=== PATIENT | male | born 1950 | race Caucasian/White ===

== ENCOUNTER 2017-01-27 17:54 | Inpatient (IN) | payer BC, MEDICARE ==
[2017-01-27] MEDS ORDERED: Sodium Chloride 0.9% 1,000 ML IV ONE ×2 (18:24→19:50)
[2017-01-27] MEDS ORDERED: Ondansetron 4 MG/2 ML SDV IV ONE (18:24)
--- NOTE | 2017-01-27 18:29 | EDM.PDOC ---
<Julio Cesar Finney - Last Filed: 01/27/17 19:02> ED HPI GENERAL MEDICAL PROBLEM - General Chief Complaint: Respiratory Problem Stated Complaint: RIGGOR,O2 LOW, THROWING UP [id number] Time Seen by Provider: 01/27/17 18:20 Source of Information: Reports: Patient History Limitations: Reports: No Limitations - History of Present Illness INITIAL COMMENTS - FREE TEXT/NARRATIVE: This 66 yo male patient reports to the ED with a 1 day history of a productive cough and a fever. The patient reports no specific area of pain. The patient reports he has been eating and drinking normally over the past couple of days. The patient reports his cough has been getting worse throughout today and the body aches have also been getting worse. Onset Date: 01/26/17 Duration: Constant, Getting Worse Location: Reports: Chest, Generalized Quality: Reports: Ache, Dull Severity: Moderate Improves with: Reports: None Worsens with: Reports: None Associated Symptoms: Reports: cough w sputum, Fever/Chills, Nausea/Vomiting - Related Data Allergies Allergy/AdvReac Type Severity Reaction Status Date / Time No Known Allergies Allergy Verified 01/27/17 19:16 Home Meds: Home Meds Lutein/Minerals/Vit A,C & E [Ocuvite] 1 tab PO DAILY 01/27/17 [History] ED ROS GENERAL - Review of Systems Review Of Systems: ROS reveals no pertinent complaints other than HPI. ED EXAM, GENERAL - Physical Exam Exam: See Below Exam Limited By: No Limitations General Appearance: Alert, WD/WN, Moderate Distress, Obese Eye Exam: Bilateral Eye: EOMI, Normal Inspection, PERRL Ears: Normal External Exam, Normal Canal, Hearing Grossly Normal, Normal TMs Nose: Normal Inspection, Normal Mucosa, No Blood Throat/Mouth: Normal Inspection, Normal Lips, Normal Teeth, Normal Gums, Normal Oropharynx, Normal Voice, No Airway Compromise Head: Atraumatic, Normocephalic Neck: Normal Inspection, Supple, Non-Tender, Full Range of Motion Respiratory/Chest: No Accessory Muscle Use, Chest Non-Tender, Decreased Breath Sounds (Right lower lobe) Cardiovascular: Normal Peripheral Pulses, Regular Rate, Rhythm, No Edema, No Gallop, No JVD, No Murmur, No Rub GI/Abdominal: Normal Bowel Sounds, Soft, Non-Tender, No Organomegaly, No Distention, No Abnormal Bruit, No Mass (Male) Exam: Deferred Rectal (Males) Exam: Deferred Back Exam: Normal Inspection, Full Range of Motion, NT Extremities: Normal Inspection, Normal Range of Motion, Non-Tender, Normal Capillary Refill, No Pedal Edema Neurological: Alert, Oriented, CN II-XII Intact, Normal Cognition, Normal Gait, Normal Reflexes, No Motor/Sensory Deficits Psychiatric: Normal Affect, Normal Mood Skin Exam: Diaphoretic, Increased Warmth Lymphatic: No Adenopathy Course - Vital Signs Last Recorded V/S: Last Vital Signs Temp 99.4 F 01/28/17 00:08 Pulse 93 01/28/17 00:08 Resp 16 01/28/17 00:08 BP 111/62 01/28/17 00:08 Pulse Ox 99 01/28/17 00:08 - Orders/Labs/Meds Orders: Active Orders 24 hr Category Date Time Status CULTURE BLOOD [BC] Stat Lab 01/27/17 18:25 Received CULTURE BLOOD [] Stat Lab 01/27/17 19:25 Received CULTURE STREP A CONFIRMATION [] Stat Lab 01/27/17 20:11 Results STREP SCRN A RAPID W CULT CONF [] Stat Lab 01/27/17 20:11 Results Azithromycin [Zithromax] 500 mg Med 01/27/17 22:00 Active Sodium Chloride 0.9% [Normal Saline] 250 ml IV Q24H Lutein/Minerals/Vit A,C & E [I-Belen] Med 01/28/17 09:00 Active 1 each PO DAILY cefTRIAXone [Rocephin] 1 gm Med 01/28/17 21:00 Active Sodium Chloride 0.9% [Normal Saline] 50 ml IV Q24H Blood Culture x2 Reflex Set [OM.PC] Stat Oth 01/27/17 18:08 Ordered Medication Orders Acetaminophen (Tylenol) 650 mg PO Q4H PRN PRN Reason: Pain (Mild 1-3)/fever Hydrocodone Bitart/Acetaminophen ([place] 325-10 Mg) 0.5 tab PO Q4H PRN PRN Reason: Pain (moderate 4-6) Albuterol/Ipratropium (Duoneb 3.0-0.5 Mg/3 Ml) 3 ml NEB Q4H PRN PRN Reason: shortness of breath/wheezing Last Admin: 01/27/17 23:50 Dose: 3 ml Benzonatate (Tessalon Perles) 100 mg PO QID PRN PRN Reason: Cough Guaifenesin (Robitussin) 100 mg PO Q6H PRN PRN Reason: Cough Azithromycin 500 mg/ Sodium (Chloride) 250 mls @ 250 mls/hr IV Q24H PRADIP Last Admin: 01/27/17 22:26 Dose: 250 mls/hr Ceftriaxone Sodium 1 gm/ (Sodium Chloride) 50 mls @ 100 mls/hr IV Q24H [facility] Multivitamins/Minerals (I-Belen) 1 each PO DAILY [facility] Ondansetron HCl (Zofran) 4 mg IVPUSH Q6H PRN PRN Reason: Nausea/Vomiting Polyethylene Glycol (Miralax) 17 gm PO DAILY PRN PRN Reason: Constipation Zolpidem Tartrate (Ambien) 5 mg PO BEDTIME PRN PRN Reason: Sleep Last Admin: 01/27/17 22:30 Dose: 5 mg Labs: Laboratory Tests 01/27/17 01/27/17 01/27/17 Range/Units 18:25 18:25 18:25 WBC 11.1 H (5.0-10.0) 10^3/uL RBC 5.64 (4.6-6.2) 10^6/uL Hgb 16.2 (14.0-18.0) g/dL Hct 47.3 (40.0-54.0) % MCV 83.9 (80-100) fL MCH 28.7 (27.0-34.0) pg MCHC 34.2 (33.0-35.0) g/dL Plt Count 220 (150-450) 10^3/uL Neut % (Auto) 78.3 H (42.2-75.2) % Lymph % (Auto) 12.0 L (20.5-50.1) % [place] % (Auto) 6.7 (2-8) % Eos % (Auto) 2.7 (1.0-3.0) % Baso % (Auto) 0.3 (0.0-1.0) % Sodium 142 (135-145) mmol/L Potassium 4.1 (3.6-5.0) mmol/L Chloride 104 (101-111) mmol/L Carbon Dioxide 24.0 (21.0-31.0) mmol/L Anion Gap 18.1 BUN 19 H (7-18) mg/dL Creatinine 1.2 (0.6-1.3) mg/dL Est Cr Clr Drug Dosing 62.52 mL/min Estimated GFR (MDRD) > 60 BUN/Creatinine Ratio 15.83 Glucose 109 H (74-105) mg/dL Lactic Acid 2.2 (0.5-2.2) mmol/L Calcium 9.1 (8.4-10.2) mg/dl Total Bilirubin 0.9 (0.2-1.0) mg/dL AST 35 (10-42) IU/L ALT 27 (10-60) IU/L Alkaline Phosphatase 57 (42-121) IU/L Troponin I (0.00-0.02) ng/ml C-Reactive Protein (0.0-1.3) mg/dL B-Natriuretic Peptide (0-100) pg/ml Total Protein 7.7 (6.7-8.2) g/dl Albumin 4.1 (3.2-5.5) g/dl Globulin 3.6 Albumin/Globulin Ratio 1.14 Urine Color (YELLOW) Urine Appearance (CLEAR) Urine pH (5.0-9.0) Ur Specific [place] (1.005-1.030) Urine Protein (NEGATIVE) Urine Glucose (UA) (NEGATIVE) Urine Ketones (NEGATIVE) mg/dL Urine Occult Blood (NEGATIVE) Urine Nitrite (NEGATIVE) Urine Bilirubin (NEGATIVE) Urine Urobilinogen (0.2-1.0) mg/dL Ur Leukocyte Esterase (NEGATIVE) Urine RBC /HPF Urine WBC (0-5/HPF) /HPF Amorphous Sediment (0/HPF) /HPF Urine Bacteria (0-FEW/HPF) /HPF Urine Mucus /LPF 01/27/17 01/27/17 01/27/17 Range/Units 18:25 18:25 18:35 WBC (5.0-10.0) 10^3/uL RBC (4.6-6.2) 10^6/uL Hgb (14.0-18.0) g/dL Hct (40.0-54.0) % MCV (80-100) fL MCH (27.0-34.0) pg MCHC (33.0-35.0) g/dL Plt Count (150-450) 10^3/uL Neut % (Auto) (42.2-75.2) % Lymph % (Auto) (20.5-50.1) % [place] % (Auto) (2-8) % Eos % (Auto) (1.0-3.0) % Baso % (Auto) (0.0-1.0) % Sodium (135-145) mmol/L Potassium (3.6-5.0) mmol/L Chloride (101-111) mmol/L Carbon Dioxide (21.0-31.0) mmol/L Anion Gap BUN (7-18) mg/dL Creatinine (0.6-1.3) mg/dL Est Cr Clr Drug Dosing mL/min Estimated GFR (MDRD) BUN/Creatinine Ratio Glucose (74-105) mg/dL Lactic Acid (0.5-2.2) mmol/L Calcium (8.4-10.2) mg/dl Total Bilirubin (0.2-1.0) mg/dL AST (10-42) IU/L ALT (10-60) IU/L Alkaline Phosphatase (42-121) IU/L Troponin I < 0.02 (0.00-0.02) ng/ml C-Reactive Protein 13.1 H (0.0-1.3) mg/dL B-Natriuretic Peptide 12 (0-100) pg/ml Total Protein (6.7-8.2) g/dl Albumin (3.2-5.5) g/dl Globulin Albumin/Globulin Ratio Urine Color Yellow (YELLOW) Urine Appearance Slightly cloudy (CLEAR) Urine pH 6.0 (5.0-9.0) Ur Specific [place] 1.020 (1.005-1.030) Urine Protein 30 H (NEGATIVE) Urine Glucose (UA) Negative (NEGATIVE) Urine Ketones Negative (NEGATIVE) mg/dL Urine Occult Blood Negative (NEGATIVE) Urine Nitrite Negative (NEGATIVE) Urine Bilirubin Negative (NEGATIVE) Urine Urobilinogen 1.0 (0.2-1.0) mg/dL Ur Leukocyte Esterase Negative (NEGATIVE) Urine RBC 0-5 /HPF Urine WBC 0-5 (0-5/HPF) /HPF Amorphous Sediment Rare (0/HPF) /HPF Urine Bacteria Rare (0-FEW/HPF) /HPF Urine Mucus Rare /LPF Meds: Medications Generic Name Dose Route Start Last Admin Trade Name Freq PRN Reason Stop Dose Admin Acetaminophen 650 mg 01/27/17 21:32 Tylenol PO Q4H PRN Pain (Mild 1-3)/fever Hydrocodone Bitart/Acetaminophen 0.5 tab 01/27/17 21:32 [place] 325-10 Mg PO Q4H PRN Pain (moderate 4-6) Albuterol/Ipratropium 3 ml 01/27/17 21:32 01/27/17 23:50 Duoneb 3.0-0.5 Mg/3 Ml NEB 3 ml Q4H PRN Administration shortness of breath/wheezing Benzonatate 100 mg 01/27/17 21:37 Tessalon Perles PO QID PRN Cough Guaifenesin 100 mg 01/27/17 21:37 Robitussin PO Q6H PRN Cough Azithromycin 500 mg/ Sodium 250 mls @ 250 mls/hr 01/27/17 22:00 01/27/17 22: 26 Chloride IV 250 mls/hr Q24H PRADIP Administration Ceftriaxone Sodium 1 gm/ 50 mls @ 100 mls/hr 01/28/17 21:00 Sodium Chloride IV Q24H PRADIP Multivitamins/Minerals 1 each 01/28/17 09:00 I-Belen PO DAILY PRADIP Ondansetron HCl 4 mg 01/27/17 21:32 Zofran IVPUSH Q6H PRN Nausea/Vomiting Polyethylene Glycol 17 gm 01/27/17 21:32 Miralax PO DAILY PRN Constipation Zolpidem Tartrate 5 mg 01/27/17 21:32 01/27/17 22:30 Ambien PO 5 mg BEDTIME PRN Administration Sleep Discontinued Medications Generic Name Dose Route Start Last Admin Trade Name Veda PRN Reason Stop Dose Admin Acetaminophen 650 mg 01/27/17 19:54 01/27/17 19:59 Tylenol PO 01/27/17 19:55 650 mg NOW ONE Administration Azithromycin Confirm 01/27/17 22:16 01/27/17 22:52 Zithromax Administered 01/27/17 22:17 Not Given Dose 500 mg .ROUTE .STK-MED ONE Enoxaparin Sodium 40 mg 01/28/17 09:00 Lovenox SUBCUT DAILY PRADIP Sodium Chloride 1,000 mls @ 999 mls/hr 01/27/17 18:24 01/27/17 18:30 Normal Saline IV 01/27/17 19:24 999 mls/hr .BOLUS ONE Administration Sodium Chloride 1,000 mls @ 999 mls/hr 01/27/17 19:50 01/27/17 19:52 Normal Saline IV 01/27/17 20:50 999 mls/hr .BOLUS ONE Administration Ceftriaxone Sodium 1 gm/ 50 mls @ 100 mls/hr 01/27/17 19:56 01/27/17 20:02 Sodium Chloride IV 01/27/17 20:25 100 mls/hr ONETIME ONE Administration Sodium Chloride 1,000 mls @ 150 mls/hr 01/27/17 21:45 01/27/17 23:38 Normal Saline IV 01/28/17 03:46 150 mls/hr ASDIRECTED PRADIP Administration Ondansetron HCl 4 mg 01/27/17 18:24 01/27/17 18:30 Zofran IV 01/27/17 18:25 4 mg ONETIME ONE Administration Departure - Departure Disposition: Admitted As Inpatient 66 Clinical Impression: Pneumonia Qualifiers: Pneumonia type: due to unspecified organism Laterality: left Lung location: lower lobe of lung Qualified Code(s): J18.1 - Lobar pneumonia, unspecified organism - Discharge Information - My Orders Last 24 Hours: My Active Orders 01/27/17 20:11 CULTURE STREP A CONFIRMATION [RM] Stat STREP SCRN A RAPID W CULT CONF [RM] Stat - Assessment/Plan Last 24 Hours: My Active Orders 01/27/17 20:11 CULTURE STREP A CONFIRMATION [RM] Stat STREP SCRN A RAPID W CULT CONF [RM] Stat <Samira Mendoza - Last Filed: 01/28/17 06:06> Course - Radiology Interpretation Free Text/Narrative:: CXR LLL pneumonia - Re-Assessments/Exams Free Text/Narrative Re-Assessment/Exam: 01/27/17 20:26 Continued fever, generalized body aches, Saturationmaintained 96% with oxygen. Dr. Clark accepting of patient for admission Departure - Departure Time of Disposition: 20:25 Condition: Fair
[2017-01-27 19:07] LABS: CHLORIDE,CL 104 mmol/L (101-111); SODIUM,NA 142 mmol/L (135-145)
[2017-01-27] MEDS ORDERED: Acetaminophen 325 MG Tab PO ONE (19:54)
[2017-01-27] MEDS ORDERED: cefTRIAXone 1 GM in Sodium Chloride 0.9% 50 ML IV ONE (19:56)
[2017-01-27] MEDS ORDERED: Acetaminophen/HYDROcodone 325-10 MG Tab PO PRN (21:32)
[2017-01-27] MEDS ORDERED: Ondansetron 4 MG/2 ML SDV IVPUSH PRN (21:32)
[2017-01-27] MEDS ORDERED: Zolpidem 5 MG Tab PO PRN (21:32)
[2017-01-27] MEDS ORDERED: Polyethylene Glycol 3350 Powder 17 GM Packet PO PRN (21:32)
[2017-01-27] MEDS ORDERED: Benzonatate 100 MG Cap PO PRN (21:37)
[2017-01-27] MEDS ORDERED: guaiFENesin 100 MG/5 ML Soln 5 ML UD Cup PO PRN (21:37)
[2017-01-27] MEDS ORDERED: Sodium Chloride 0.9% 1,000 ML IV SCH (21:45)
--- NOTE | 2017-01-27 22:06 | PCM.HP ---
H&P History of Present Illness - General Date of Service: 01/27/17 Admit Problem/Dx: Admission Diagnosis/Problem Admission Diagnosis/Problem Pneumonia Source of Information: Patient History Limitations: Reports: No Limitations - History of Present Illness Initial Comments - Free Text/Narative: 66-year-old male with the past medical history of hayfever, prostate cancer status post surgical treatment in 2008 present to the emergency room with respiratory symptoms. Patient stated that on 01/25/17 started having sinus congestion, productive cough, fever. Early today was feeling better however later this evening he started having chills, shortness breath while resting, nausea, fatigue, vomiting and his sat at home were 92%. He denies ear pain, sore throat, chest pain, headache, body aches, abdominal pain, diarrhea, urinary symptoms, unilateral weakness/numbness/tingling, any other symptoms or concerns. Patient denies history of current or previous tobacco use or secondhand smoking, diabetes mellitus, hypertension, heart disease, asthma, COPD , lung disease, any other chronic disease. Emergency room his rapid influenza and rapid strep tests were negative. WBC 11.1 with left shift area sodium 142. Potassium 4.1. Carbon dioxide 24. Bun 19. Creatinine 1.2. Lactic acid 2.2. CRP 13.1. Liver enzymes normal. Urinalysis normal. Chest x-ray reported "subtle left retrocardiac opacity which may represent early pneumonia." In the emergency room patient was given Zofran, 2 L of normal saline, Rocephin 1 g IV. - Related Data Allergies/Adverse Reactions: Allergies Allergy/AdvReac Type Severity Reaction Status Date / Time No Known Allergies Allergy Verified 01/27/17 19:16 Home Medications: Home Meds Lutein/Minerals/Vit A,C & E [Ocuvite] 1 tab PO DAILY 01/27/17 [History] Past Medical History HEENT History: Reports: Otitis Media Respiratory History: Reports: Bronchitis, Recurrent, Pneumonia, Recurrent, Other (See Below) Other Respiratory History: hayfever Gastrointestinal History: Reports: GERD, Helicobacter Pylori Other Gastrointestinal History: inguinal hernia on right side Genitourinary History: Reports: Other (See Below) Other Genitourinary History: Surgery for prostate surgery in 2008 Musculoskeletal History: Reports: Other (See Below) Other Musculoskeletal History: right shoulder Oncologic (Cancer) History: Reports: Prostate Other Oncologic History: 7 to 8 years ago - Infectious Disease History Infectious Disease History: Reports: C-Difficile, Helicobacter Pylori, Hepatitis B, Measles, Mumps - Past Surgical History HEENT Surgical History: Reports: None, Polypectomy Respiratory Surgical History: Reports: None GI Surgical History: Reports: Hernia, Inguinal Male Surgical History: Reports: Prostatectomy Musculoskeletal Surgical History: Reports: None Social & Family History - Tobacco Use Smoking Status *Q: Never Smoker Second Hand Smoke Exposure: No - Caffeine Use Caffeine Use: Reports: Coffee - Alcohol Use Days Per Week of Alcohol Use: 1 Number of Drinks Per Day: 1 Total Drinks Per Week: 1 Date of Last Drink: 11/10/16 Time of Last Drink: 20:00 - Recreational Drug Use Recreational Drug Use: No H&P Review of Systems - Review of Systems: Review Of Systems: ROS reveals no pertinent complaints other than HPI. Exam - Exam Exam: See Below - Vital Signs Vital Signs: Last Vital Signs Temp 38.9 C H 01/27/17 20:22 Pulse 122 H 01/27/17 20:22 Resp 18 01/27/17 20:22 BP 104/60 01/27/17 20:22 Pulse Ox 95 01/27/17 20:22 Weight: 91.172 kg - Exam General: Alert, Oriented, Cooperative, Mild Distress. No: Severe Distress, Sedated, Lethargic, Obtunded HEENT: Conjunctiva Clear, EACs Clear, EOMI, Hearing Intact, Normal Nasal Septum , Posterior Pharynx Clear, Pupils Equal, Pupils Reactive, Other (Dry mucosa. edematous nose. Congested nasal voice) Neck: Supple. No: JVD Lungs: Crackles (Left mid/lower field), Other (Monitor kidney). No: Decreased Breath Sounds, Rhonchi, Stridor, Wheezing Cardiovascular: Regular Rate, Regular Rhythm GI/Abdominal Exam: Normal Bowel Sounds, Soft, Non-Tender, No Organomegaly, No Distention, No Abnormal Bruit (Male) Exam: Deferred Rectal (Males) Exam: Deferred Back Exam: Normal Inspection, Full Range of Motion Extremities: Normal Inspection, Normal Range of Motion, Non-Tender, No Pedal Edema, Normal Capillary Refill Skin: Warm, Dry, Intact Neuro Extensive - Mental Status: Alert, Oriented x3, Normal Mood/Affect Neuro Extensive - Motor, Sensory, Reflexes: CN II-XII Intact Psychiatric: Alert, Normal Affect, Normal Mood. No: Agitated, Suicidal Ideation , Homicidal Ideation, Hallucinations - Patient Data Result Diagrams: 01/27/17 18:25 01/27/17 18:25 *Q Meaningful Use (ADM) - VTE *Q VTE Criteria *Q: - Stroke *Q Stroke Criteria *Q: - AMI *Q AMI Criteria *Q: - Problem List (1) Community acquired pneumonia SNOMED Code(s): 353116676 ICD Code: J18.9 - PNEUMONIA, UNSPECIFIED ORGANISM Status: Acute Priority : High Current Visit: Yes (2) Sepsis SNOMED Code(s): 24722540 ICD Code: A41.9 - SEPSIS, UNSPECIFIED ORGANISM Status: Acute Priority: High Current Visit: Yes (3) Hayfever SNOMED Code(s): 65767746 ICD Code: J30.1 - ALLERGIC RHINITIS DUE TO POLLEN Status: Chronic Current Visit: Yes (4) Dehydration SNOMED Code(s): 50479683 ICD Code: E86.0 - DEHYDRATION Status: Acute Priority: Medium Current Visit: Yes Problem List Initiated/Reviewed/Updated: Yes Orders Last 24hrs: Active Orders 24 hr Category Date Time Status Antiembolic Devices [RC] PER UNIT ROUTINE Care 01/27/17 21:56 Active Flutter Valve Therapy [RT Chest Physiotherapy] [RC] Care 01/27/17 21:55 Active ASDIRECTED RT Incentive Spirometry [RC] ASDIRECTED Care 01/27/17 21:55 Active Benzonatate [Tessalon Perles] Med 01/27/17 21:37 Active 100 mg PO QID PRN guaiFENesin [Robitussin] Med 01/27/17 21:37 Active 100 mg PO Q6H PRN Sequential Compression Device [OM.PC] Routine Oth 01/27/17 21:56 Ordered JEANNE Hose [Antiembolic Hose] [OM.PC] Routine Oth 01/27/17 21:56 Ordered Medication Orders Acetaminophen (Tylenol) 650 mg PO Q4H PRN PRN Reason: Pain (Mild 1-3)/fever Hydrocodone Bitart/Acetaminophen ([place] 325-10 Mg) 0.5 tab PO Q4H PRN PRN Reason: Pain (moderate 4-6) Albuterol/Ipratropium (Duoneb 3.0-0.5 Mg/3 Ml) 3 ml NEB Q4H PRN PRN Reason: shortness of breath/wheezing Benzonatate (Tessalon Perles) 100 mg PO QID PRN PRN Reason: Cough Guaifenesin (Robitussin) 100 mg PO Q6H PRN PRN Reason: Cough Azithromycin 500 mg/ Sodium (Chloride) 250 mls @ 250 mls/hr IV Q24H PRADIP Ceftriaxone Sodium 1 gm/ (Sodium Chloride) 50 mls @ 100 mls/hr IV Q24H PRADIP Sodium Chloride (Normal Saline) 1,000 mls @ 75 mls/hr IV ASDIRECTED PRADIP Stop: 01/28/17 10:46 Multivitamins/Minerals (I-Belen) 1 each PO DAILY PRADIP Ondansetron HCl (Zofran) 4 mg IVPUSH Q6H PRN PRN Reason: Nausea/Vomiting Polyethylene Glycol (Miralax) 17 gm PO DAILY PRN PRN Reason: Constipation Zolpidem Tartrate (Ambien) 5 mg PO BEDTIME PRN PRN Reason: Sleep Assessment/Plan Comment:: Assessment and plan Sepsis, source of infection is most likely pneumonia On admission patient had elevated temp, WBC, heart rate, respiratory rate -Fluid resuscitation. 3 L of normal saline to be given. Encourage oral fluid intake -Rocephin and azithromycin IV -Awaiting blood cultures and sputum cultures. Sputum culture was collected after receiving first dose of Rocephin Community acquired pneumonia, -Rocephin and azithromycin IV Flutter valve and incentive spirometer DuoNeb, Robitussin, and Tesslon When Necessary Dehydration Fluid resuscitation initiated on admission Encourage oral fluid intake History of Hayfever DuoNeb, Robitussin, and Tesslon When Necessary History of prostate cancer status post surgical treatment in 2008. No current prostate or urinary symptoms Patient and family declined medications for DVT prophylaxis. JEANNE baugh, SCDs and encouragement for ambulation were recommended He is full code
[2017-01-27] MEDS ORDERED: Azithromycin 500 MG Vial ONE (22:16)
[2017-01-27] MEDS: Azithromycin 500 MG in Sodium Chloride 0.9% 250 ML IV SCH (22:26)
[2017-01-27] MEDS: Albuterol/Ipratropium 3.0-0.5 MG/3 ML Neb Soln NEB PRN (23:50)
[2017-01-28 07:06] LABS: CHLORIDE,CL 111 mmol/L (101-111); SODIUM,NA 144 mmol/L (135-145)
[2017-01-28] MEDS ORDERED: Enoxaparin 40 MG/0.4 ML Syringe SUBCUT SCH (09:00)
[2017-01-28] MEDS: Albuterol/Ipratropium 3.0-0.5 MG/3 ML Neb Soln NEB PRN (09:49)
[2017-01-28] MEDS: Lutein/Minerals/Vit A,C & E Tab PO SCH (11:17)
--- NOTE | 2017-01-28 11:23 | PCM.PN ---
- General Info Date of Service: 01/28/17 Admission Dx/Problem (Free Text): Admission Diagnosis/Problem Admission Diagnosis/Problem Pneumonia Subjective Update: Patient said he is feeling better. His shortness breath and cough are still there but better. He denies fever, chills, nausea, vomiting, chest pain, no pain , urinary symptoms, diarrhea, any other symptoms or concerns. DuoNeb made him feel better - Patient Data Vitals - Most Recent: Last Vital Signs Temp 37.6 C 01/28/17 08:46 Pulse 77 01/28/17 08:46 Resp 20 01/28/17 08:46 BP 120/64 01/28/17 08:46 Pulse Ox 98 01/28/17 08:46 Weight - Most Recent: 91.172 kg I&O - Last 24 Hours: Intake & Output 01/27/17 01/28/17 01/28/17 22:59 06:59 14:59 Intake Total 2738 Output Total 450 500 500 Balance -450 2238 -500 Lab Results Last 24 Hours: Laboratory Results - last 24 hr 01/28/17 01/28/17 01/28/17 Range/Units 05:50 05:50 05:50 WBC 12.2 H (5.0-10.0) 10^3/uL RBC 4.63 (4.6-6.2) 10^6/uL Hgb 13.3 L (14.0-18.0) g/dL Hct 39.8 L (40.0-54.0) % MCV 86.0 (80-100) fL MCH 28.7 (27.0-34.0) pg MCHC 33.4 (33.0-35.0) g/dL Plt Count 221 (150-450) 10^3/uL Neut % (Auto) 72.5 (42.2-75.2) % Lymph % (Auto) 16.9 L (20.5-50.1) % [place] % (Auto) 9.5 H (2-8) % Eos % (Auto) 0.9 L (1.0-3.0) % Baso % (Auto) 0.2 (0.0-1.0) % Sodium 144 (135-145) mmol/L Potassium 4.5 (3.6-5.0) mmol/L Chloride 111 (101-111) mmol/L Carbon Dioxide 24.0 (21.0-31.0) mmol/L Anion Gap 13.5 BUN 15 (7-18) mg/dL Creatinine 1.1 (0.6-1.3) mg/dL Est Cr Clr Drug Dosing 68.21 mL/min Estimated GFR (MDRD) > 60 Glucose 105 (74-105) mg/dL Lactic Acid 1.4 (0.5-2.2) mmol/L Calcium 8.0 L (8.4-10.2) mg/dl C-Reactive Protein (0.0-1.3) mg/dL 01/28/17 Range/Units 05:50 WBC (5.0-10.0) 10^3/uL RBC (4.6-6.2) 10^6/uL Hgb (14.0-18.0) g/dL Hct (40.0-54.0) % MCV (80-100) fL MCH (27.0-34.0) pg MCHC (33.0-35.0) g/dL Plt Count (150-450) 10^3/uL Neut % (Auto) (42.2-75.2) % Lymph % (Auto) (20.5-50.1) % [place] % (Auto) (2-8) % Eos % (Auto) (1.0-3.0) % Baso % (Auto) (0.0-1.0) % Sodium (135-145) mmol/L Potassium (3.6-5.0) mmol/L Chloride (101-111) mmol/L Carbon Dioxide (21.0-31.0) mmol/L Anion Gap BUN (7-18) mg/dL Creatinine (0.6-1.3) mg/dL Est Cr Clr Drug Dosing mL/min Estimated GFR (MDRD) Glucose (74-105) mg/dL Lactic Acid (0.5-2.2) mmol/L Calcium (8.4-10.2) mg/dl C-Reactive Protein 12.6 H (0.0-1.3) mg/dL Jt Results Last 24 Hours: Microbiology 01/27/17 22:30 Gram Stain - Final Sputum - Expectorated Med Orders - Current: Current Medications Acetaminophen (Tylenol) 650 mg PO Q4H PRN PRN Reason: Pain (Mild 1-3)/fever Hydrocodone Bitart/Acetaminophen ([place] 325-10 Mg) 0.5 tab PO Q4H PRN PRN Reason: Pain (moderate 4-6) Albuterol/Ipratropium (Duoneb 3.0-0.5 Mg/3 Ml) 3 ml NEB Q4H PRN PRN Reason: shortness of breath/wheezing Last Admin: 01/28/17 09:49 Dose: 3 ml Albuterol/Ipratropium (Duoneb 3.0-0.5 Mg/3 Ml) 3 ml NEB Q8HRRT [facility] Benzonatate (Tessalon Perles) 100 mg PO QID PRN PRN Reason: Cough Guaifenesin (Robitussin) 100 mg PO Q6H PRN PRN Reason: Cough Azithromycin 500 mg/ Sodium (Chloride) 250 mls @ 250 mls/hr IV Q24H [facility] Last Admin: 01/27/17 22:26 Dose: 250 mls/hr Ceftriaxone Sodium 1 gm/ (Sodium Chloride) 50 mls @ 100 mls/hr IV Q24H [facility] Multivitamins/Minerals (I-Belen) 1 each PO DAILY PRADIP Last Admin: 01/28/17 11:17 Dose: 1 each Ondansetron HCl (Zofran) 4 mg IVPUSH Q6H PRN PRN Reason: Nausea/Vomiting Polyethylene Glycol (Miralax) 17 gm PO DAILY PRN PRN Reason: Constipation Zolpidem Tartrate (Ambien) 5 mg PO BEDTIME PRN PRN Reason: Sleep Last Admin: 01/27/17 22:30 Dose: 5 mg Discontinued Medications Acetaminophen (Tylenol) 650 mg PO NOW ONE Stop: 01/27/17 19:55 Last Admin: 01/27/17 19:59 Dose: 650 mg Azithromycin (Zithromax) Confirm Administered Dose 500 mg .ROUTE .STK-MED ONE Stop: 01/27/17 22:17 Last Admin: 01/27/17 22:52 Dose: Not Given Enoxaparin Sodium (Lovenox) 40 mg SUBCUT DAILY [facility] Sodium Chloride (Normal Saline) 1,000 mls @ 999 mls/hr IV .BOLUS ONE Stop: 01/27/17 19:24 Last Admin: 01/27/17 18:30 Dose: 999 mls/hr Sodium Chloride (Normal Saline) 1,000 mls @ 999 mls/hr IV .BOLUS ONE Stop: 01/27/17 20:50 Last Admin: 01/27/17 19:52 Dose: 999 mls/hr Ceftriaxone Sodium 1 gm/ (Sodium Chloride) 50 mls @ 100 mls/hr IV ONETIME ONE Stop: 01/27/17 20:25 Last Admin: 01/27/17 20:02 Dose: 100 mls/hr Sodium Chloride (Normal Saline) 1,000 mls @ 150 mls/hr IV ASDIRECTED PRADIP Stop: 01/28/17 03:46 Last Admin: 01/27/17 23:38 Dose: 150 mls/hr Ondansetron HCl (Zofran) 4 mg IV ONETIME ONE Stop: 01/27/17 18:25 Last Admin: 01/27/17 18:30 Dose: 4 mg - Exam General: Alert, Oriented, Cooperative, No Acute Distress, Mild Distress. No: Moderate Distress, Severe Distress, Sedated, Lethargic, Obtunded HEENT: Pupils Equal, Pupils Reactive, EOMI, Mucous Membr. Moist/[place] Neck: Supple, Trachea Midline, No JVD Lungs: Normal Respiratory Effort, Crackles (In lower bases). No: Stridor, Wheezing Cardiovascular: Regular Rate, Regular Rhythm, No Murmurs GI/Abdominal Exam: Normal Bowel Sounds, Soft, Non-Tender, No Organomegaly, No Distention, No Abnormal Bruit, No Mass (Male) Exam: Deferred Back Exam: Normal Inspection, Full Range of Motion Extremities: Normal Inspection, Normal Range of Motion, Non-Tender, No Pedal Edema, Normal Capillary Refill Skin: Warm, Dry, Intact Neurological: No New Focal Deficit Psy/Mental Status: Alert, Normal Affect, Normal Mood - Problem List & Annotations (1) Community acquired pneumonia SNOMED Code(s): 042804694 Code(s): J18.9 - PNEUMONIA, UNSPECIFIED ORGANISM Status: Acute Priority: High Current Visit: Yes (2) Sepsis SNOMED Code(s): 17661362 Code(s): A41.9 - SEPSIS, UNSPECIFIED ORGANISM Status: Acute Priority: High Current Visit: Yes (3) Hayfever SNOMED Code(s): 44484151 Code(s): J30.1 - ALLERGIC RHINITIS DUE TO POLLEN Status: Chronic Current Visit: Yes (4) Dehydration SNOMED Code(s): 94815406 Code(s): E86.0 - DEHYDRATION Status: Acute Priority: Medium Current Visit: Yes - Problem List Review Problem List Initiated/Reviewed/Updated: Yes - My Orders Last 24 Hours: My Active Orders 01/27/17 21:37 Benzonatate [Tessalon Perles] 100 mg PO QID PRN guaiFENesin [Robitussin] 100 mg PO Q6H PRN 01/27/17 21:55 Flutter Valve Therapy [RT Chest Physiotherapy] [RC] ASDIRECTED RT Incentive Spirometry [RC] ASDIRECTED 01/27/17 21:56 Antiembolic Devices [RC] PER UNIT ROUTINE Sequential Compression Device [OM.PC] Routine JEANNE Hose [Antiembolic Hose] [OM.PC] Routine 01/28/17 15:00 Albuterol/Ipratropium [DuoNeb 3.0-0.5 MG/3 ML] 3 ml NEB Q8HRRT 01/29/17 05:11 BASIC METABOLIC PANEL,BMP [CHEM] AM CBC WITH AUTO DIFF [HEME] AM - Plan Plan:: Assessment and plan Sepsis, source of infection is most likely pneumonia On admission patient had elevated temp, WBC, heart rate, respiratory rate Fluid resuscitation of 3 L of normal saline Encourage oral fluid intake -Continue Rocephin and azithromycin IV -Awaiting blood cultures and sputum cultures. Sputum culture was collected after receiving first dose of Rocephin Community acquired pneumonia, -Continue Rocephin and azithromycin IV Flutter valve and incentive spirometer DuoNeb every 8 hours scheduled, and when necessary Robitussin, and Tesslon When Necessary Dehydration -Improving Fluid resuscitation initiated on admission Encourage oral fluid intake History of Hayfever DuoNeb, Robitussin, and Tesslon When Necessary History of prostate cancer status post surgical treatment in 2008. No current prostate or urinary symptoms Patient and family declined medications for DVT prophylaxis. JEANNE hose, SCDs and encouragement for ambulation were recommended He is full code
[2017-01-28] MEDS: Acetaminophen 325 MG Tab PO PRN ×2 (15:33→22:34)
[2017-01-28] MEDS: Albuterol/Ipratropium 3.0-0.5 MG/3 ML Neb Soln NEB SCH ×2 (15:39→22:37)
[2017-01-28] MEDS ORDERED: cefTRIAXone 1 GM in Sodium Chloride 0.9% 50 ML IV SCH (21:00)
[2017-01-28] MEDS: Sodium Chloride 0.9% 10 ML Syringe FLUSH PRN ×2 (21:16→22:05)
[2017-01-28] MEDS: Azithromycin 500 MG in Sodium Chloride 0.9% 250 ML IV SCH (22:05)
[2017-01-29 06:39] LABS: CHLORIDE,CL 110 mmol/L (101-111); SODIUM,NA 143 mmol/L (135-145)
[2017-01-29] MEDS: Albuterol/Ipratropium 3.0-0.5 MG/3 ML Neb Soln NEB SCH ×2 (07:55→14:42)
[2017-01-29] MEDS: Lutein/Minerals/Vit A,C & E Tab PO SCH (08:51)
[2017-01-29] MEDS ORDERED: cefTRIAXone 1 GM in Sodium Chloride 0.9% 50 ML IV ONE (12:00)
[2017-01-29 12:21] VITALS: BP 156/84
[2017-01-29] MEDS: Sodium Chloride 0.9% 10 ML Syringe FLUSH PRN ×3 (12:24→14:07)
[2017-01-29] MEDS ORDERED: Azithromycin 500 MG in Sodium Chloride 0.9% 250 ML IV ONE (13:00)
--- NOTE | 2017-01-29 14:12 | PCM.DCSUM1 ---
Discharge Summary - Hospital Course Free Text/Narrative:: 66-year-old male with the past medical history of hayfever, prostate cancer status post surgical treatment in 2008 present to the emergency room with respiratory symptoms. Patient stated that on 01/25/17 started having sinus congestion, productive cough, fever. Also he started having chills, shortness breath while resting, nausea, fatigue, vomiting and his sat at home were 92%. He denied ear pain, sore throat, chest pain, headache, body aches, abdominal pain, diarrhea, urinary symptoms, unilateral weakness/numbness/tingling, any other symptoms or concerns. Patient denies history of current or previous tobacco use or secondhand smoking, diabetes mellitus, hypertension, heart disease, asthma, COPD, lung disease, any other chronic disease. In Emergency room his rapid influenza and rapid strep tests were negative. WBC 11.1 with left shift area sodium 142. Potassium 4.1. Carbon dioxide 24. Bun 19. Creatinine 1.2. Lactic acid 2.2. CRP 13.1. Liver enzymes normal. Urinalysis normal. Chest x-ray reported "subtle left retrocardiac opacity which may represent early pneumonia." He received Zofran, 2 L of normal saline, Rocephin 1 g IV, and is azithromycin 500 mg IV. Patient gradually is getting better. His cough is much better. Today he denies fever, chills, nausea, vomiting, chest pain, shortness breath, abdominal pain, or symptoms, unilateral weakness, any other symptoms or concern. He is not requiring nasal oxygen. His laboratory workup from today reported WBC 9.2. Hemoglobin 12.9. BMP normal. Patient was advised to follow-up with primary care provider in the next 5-7 days for his pneumonia also for his low hemoglobin. His low hemoglobin possibly from transient bone marrow suppression from pneumonia. Patient was anxious to go home and did not want to stay 1 more day of IV antibiotic. He completed 3 days of IV antibiotics including today. Patient will complete another 7 days of antibiotic, Vantin and azithromycin. He was prescribed albuterol inhaler and Mucinex for cough and shortness breath as needed. Patient was informed that he needs to repeat the chest x-ray in 4-6 weeks to confirm pneumonia resolution and no other hidden pathology appreciated. - Discharge Data Discharge Date: 01/29/17 Discharge Disposition: Home, Self-Care 01 Condition: Good - Discharge Diagnosis/Problem(s) (1) Community acquired pneumonia SNOMED Code(s): 884820685 ICD Code: J18.9 - PNEUMONIA, UNSPECIFIED ORGANISM Status: Acute Priority : High Current Visit: Yes (2) Sepsis SNOMED Code(s): 57022625 ICD Code: A41.9 - SEPSIS, UNSPECIFIED ORGANISM Status: Acute Priority: High Current Visit: Yes (3) Hayfever SNOMED Code(s): 68583994 ICD Code: J30.1 - ALLERGIC RHINITIS DUE TO POLLEN Status: Chronic Current Visit: Yes (4) Dehydration SNOMED Code(s): 30451968 ICD Code: E86.0 - DEHYDRATION Status: Resolved Priority: Medium Current Visit: Yes - Patient Instructions Diet: Heart Healthy Diet Activity: As Tolerated Showering/Bathing: September Shower Notify Provider of: Fever, Nausea and/or Vomiting - Discharge Plan Prescriptions/Med Rec: Albuterol Sulfate [Proair Respiclick] 90 mcg IH Q4H PRN #1 [email or web address] PRN Reason: Cough, shortness of breath Azithromycin [Zithromax] 250 mg PO DAILY #2 tablet Cefpodoxime [Vantin] 200 mg PO BID #14 tablet Home Medications: Home Meds Lutein/Minerals/Vit A,C & E [Ocuvite] 1 tab PO DAILY 01/27/17 [History] Albuterol Sulfate [Proair Respiclick] 90 mcg IH Q4H PRN #1 [email or web address] 01/29/17 [ Rx] Azithromycin [Zithromax] 250 mg PO DAILY #2 tablet 01/29/17 [Rx] Cefpodoxime [Vantin] 200 mg PO BID #14 tablet 01/29/17 [Rx] guaiFENesin [Robitussin] 100 mg PO Q6H PRN #1 bottle 01/29/17 [Rx] Patient Handouts: Albuterol inhalation powder, Albuterol inhalation aerosol, Cefpodoxime tablets, Azithromycin tablets, Community-Acquired Pneumonia, Adult - General Info Admission Dx/Problem (Free Text: Admission Diagnosis/Problem Admission Diagnosis/Problem Pneumonia - Review of Systems General: Reports: No Symptoms HEENT: Reports: No Symptoms Pulmonary: Reports: Cough. Denies: Shortness of Breath, Pleuritic Chest Pain, Sputum, Hemoptysis, Wheezing Cardiovascular: Reports: No Symptoms Gastrointestinal: Reports: No Symptoms Genitourinary: Reports: No Symptoms Musculoskeletal: Reports: No Symptoms Skin: Reports: No Symptoms Neurological: Reports: No Symptoms Psychiatric: Reports: No Symptoms - Patient Data Vitals - Most Recent: Last Vital Signs Temp 37.3 C 01/29/17 12:00 Pulse 81 01/29/17 12:00 Resp 16 01/29/17 12:00 BP 156/84 H 01/29/17 12:00 Pulse Ox 100 01/29/17 12:00 Weight - Most Recent: 91.172 kg I&O - Last 24 hours: Intake & Output 01/28/17 01/29/17 01/29/17 22:59 06:59 14:59 Intake Total 1402 250 313 Output Total 900 Balance 502 250 313 Lab Results - Last 24 hrs: Laboratory Results - last 24 hr 01/29/17 01/29/17 Range/Units 05:45 05:45 WBC 9.2 (5.0-10.0) 10^3/uL RBC 4.50 L (4.6-6.2) 10^6/uL Hgb 12.9 L (14.0-18.0) g/dL Hct 39.0 L (40.0-54.0) % MCV 86.7 (80-100) fL MCH 28.7 (27.0-34.0) pg MCHC 33.1 (33.0-35.0) g/dL Plt Count 236 (150-450) 10^3/uL Neut % (Auto) 63.8 (42.2-75.2) % Lymph % (Auto) 21.2 (20.5-50.1) % [place] % (Auto) 10.2 H (2-8) % Eos % (Auto) 4.4 H (1.0-3.0) % Baso % (Auto) 0.4 (0.0-1.0) % Sodium 143 (135-145) mmol/L Potassium 4.8 (3.6-5.0) mmol/L Chloride 110 (101-111) mmol/L Carbon Dioxide 24.0 (21.0-31.0) mmol/L Anion Gap 13.8 BUN 15 (7-18) mg/dL Creatinine 1.1 (0.6-1.3) mg/dL Est Cr Clr Drug Dosing 68.21 mL/min Estimated GFR (MDRD) > 60 Glucose 102 (74-105) mg/dL Calcium 8.8 (8.4-10.2) mg/dl Med Orders - Current: Current Medications Acetaminophen (Tylenol) 650 mg PO Q4H PRN PRN Reason: Pain (Mild 1-3)/fever Last Admin: 01/28/17 22:34 Dose: 650 mg Hydrocodone Bitart/Acetaminophen ([place] 325-10 Mg) 0.5 tab PO Q4H PRN PRN Reason: Pain (moderate 4-6) Albuterol/Ipratropium (Duoneb 3.0-0.5 Mg/3 Ml) 3 ml NEB Q4H PRN PRN Reason: shortness of breath/wheezing Last Admin: 01/28/17 09:49 Dose: 3 ml Albuterol/Ipratropium (Duoneb 3.0-0.5 Mg/3 Ml) 3 ml NEB Q8HRRT COUNT INCLUDES THE [facility] Last Admin: 01/29/17 07:55 Dose: 3 ml Benzonatate (Tessalon Perles) 100 mg PO QID PRN PRN Reason: Cough Last Admin: 01/28/17 22:35 Dose: 100 mg Guaifenesin (Robitussin) 100 mg PO Q6H PRN PRN Reason: Cough Last Admin: 01/28/17 19:53 Dose: 100 mg Multivitamins/Minerals (I-Belen) 1 each PO DAILY COUNT INCLUDES [facility] Last Admin: 01/29/17 08:51 Dose: 1 each Ondansetron HCl (Zofran) 4 mg IVPUSH Q6H PRN PRN Reason: Nausea/Vomiting Polyethylene Glycol (Miralax) 17 gm PO DAILY PRN PRN Reason: Constipation Sodium Chloride (Saline Flush) 10 ml FLUSH ASDIRECTED PRN PRN Reason: Keep Vein Open Last Admin: 01/29/17 14:07 Dose: 10 ml Zolpidem Tartrate (Ambien) 5 mg PO BEDTIME PRN PRN Reason: Sleep Last Admin: 01/27/17 22:30 Dose: 5 mg Discontinued Medications Acetaminophen (Tylenol) 650 mg PO NOW ONE Stop: 01/27/17 19:55 Last Admin: 01/27/17 19:59 Dose: 650 mg Azithromycin (Zithromax) Confirm Administered Dose 500 mg .ROUTE .STK-MED ONE Stop: 01/27/17 22:17 Last Admin: 01/27/17 22:52 Dose: Not Given Enoxaparin Sodium (Lovenox) 40 mg SUBCUT DAILY COUNT [facility]CLUDES [facility] Sodium Chloride (Normal Saline) 1,000 mls @ 999 mls/hr IV .BOLUS ONE Stop: 01/27/17 19:24 Last Admin: 01/27/17 18:30 Dose: 999 mls/hr Sodium Chloride (Normal Saline) 1,000 mls @ 999 mls/hr IV .BOLUS ONE Stop: 01/27/17 20:50 Last Admin: 01/27/17 19:52 Dose: 999 mls/hr Ceftriaxone Sodium 1 gm/ (Sodium Chloride) 50 mls @ 100 mls/hr IV ONETIME ONE Stop: 01/27/17 20:25 Last Admin: 01/27/17 20:02 Dose: 100 mls/hr Azithromycin 500 mg/ Sodium (Chloride) 250 mls @ 250 mls/hr IV Q24H COUNT [facility]CLUDES [facility] Last Admin: 01/28/17 22:05 Dose: 250 mls/hr Ceftriaxone Sodium 1 gm/ (Sodium Chloride) 50 mls @ 100 mls/hr IV Q24H COUNT [facility]CLUD[facility] Last Admin: 01/28/17 20:46 Dose: 100 mls/hr Sodium Chloride (Normal Saline) 1,000 mls @ 150 mls/hr IV ASDIRECTED COUNT INCLUDES THE [facility] Stop: 01/28/17 03:46 Last Admin: 01/27/17 23:38 Dose: 150 mls/hr Ceftriaxone Sodium 1 gm/ (Sodium Chloride) 50 mls @ 100 mls/hr IV ONETIME ONE Stop: 01/29/17 12:29 Last Admin: 01/29/17 12:23 Dose: 100 mls/hr Azithromycin 500 mg/ Sodium (Chloride) 250 mls @ 250 mls/hr IV ONETIME ONE Stop: 01/29/17 13:59 Last Admin: 01/29/17 13:00 Dose: 250 mls/hr Ondansetron HCl (Zofran) 4 mg IV ONETIME ONE Stop: 01/27/17 18:25 Last Admin: 01/27/17 18:30 Dose: 4 mg - Exam General: Reports: Alert, Oriented, Cooperative, No Acute Distress. Denies: Mild Distress, Moderate Distress, Severe Distress, Sedated, Lethargic, Obtunded HEENT: Reports: Pupils Equal, Pupils Reactive, EOMI, Mucous Membr. Moist/[place] Neck: Reports: Supple, Trachea Midline, No JVD Lungs: Reports: Clear to Auscultation, Normal Respiratory Effort. Denies: Decreased Breath Sounds, Crackles, Rales, Rhonchi, Rub, Stridor, Wheezing GI/Abdominal Exam: Normal Bowel Sounds, Soft, Non-Tender, No Organomegaly, No Distention, No Abnormal Bruit, No Mass (Male) Exam: Deferred Rectal (Males) Exam: Deferred Back Exam: Reports: Normal Inspection, Full Range of Motion Extremities: Normal Inspection, Normal Range of Motion, Non-Tender, No Pedal Edema, Normal Capillary Refill Skin: Reports: Warm, Dry, Intact Neurological: Reports: No New Focal Deficit Psy/Mental Status: Reports: Alert, Normal Affect, Normal Mood *Q Meaningful Use (DIS) - VTE *Q VTE Criteria *Q: - Stroke *Q Stroke Criteria *Q: - AMI *Q AMI Criteria *Q:
== END 2017-01-29 15:00 | disposition home or self-care (01) | DRG 720 ==
LOC: DL.ED 17:54 → DL.MS 20:54 → UNDOADMIN 20:54 → DL.MS 21:32
PROVIDERS: ADMIT Family Medicine; ATTEND Family Medicine
DX: A41.9 Sepsis, unspecified organism (principal); J18.9 Pneumonia, unspecified organism; Z85.46 Personal history of malignant neoplasm of prostate; E86.0 Dehydration; K21.9 Gastro-esophageal reflux disease without esophagitis; J30.1 Allergic rhinitis due to pollen; D64.9 Anemia, unspecified
CPT/HCPCS: 36415; 71020; 80048; 80053; 81001; 83605; 83880; 84484; 85025; 86140; 87040; 87070; 87081; 87186; 87205; 87430; 87804; 94640; 94640-76; 94667; 96361; 96365; 96375; 99284; A9270-GY; J0456; J0696; J2405; J7030; J7050

== ENCOUNTER 2020-11-15 13:53 | Emergency (ER) | payer MEDICARE, BC ==
[2020-11-15] MEDS ORDERED: Amoxicillin/Clavulanate K 875-125 MG Tab PO ONE ×2 (13:54→18:45)
[2020-11-15] MEDS ORDERED: Meclizine 12.5 MG Tab PO ONE ×2 (13:54→17:18)
[2020-11-15] MEDS ORDERED: Ondansetron 4 MG/2 ML SDV IVPUSH ONE (14:01)
[2020-11-15 14:15] VITALS: BP 155/107; PULSE 67
[2020-11-15 15:20] LABS: ANION GAP 14.8 mEq/L (7-13); CHLORIDE,CL 105 mmol/L (98-107); SODIUM,NA 144 mmol/L (136-145)
--- NOTE | 2020-11-15 15:43 | EDM.PDOC ---
"ED HPI GENERAL MEDICAL PROBLEM - General Chief Complaint: Gastrointestinal Problem Stated Complaint: THROWING UP DIZZY SWEATING [id number] Time Seen by Provider: 11/15/20 14:30 Source of Information: Reports: Patient, Family (), RN, RN Notes Reviewed History Limitations: Reports: No Limitations - History of Present Illness INITIAL COMMENTS - FREE TEXT/NARRATIVE: Sabrina is a 70 y/o male who presents to the ED via personal vehicle with for complaints of dizziness. The patient reports experiencing dizziness earlier this morning which maintained in severity; he then began to experience diaphoresis, nausea, and vomiting about two hours after the dizziness began. He denies recent illness, fever, shaking chills, cough, sore throat, sinus congestion, chest pain, palpitations, shortness of breath, abdominal pain, dysuria, or diarrhea. The patient reports he took all prescribed medications this morning, including Metoprolol and and Losartan. He denies history of hanh tigo or similar episodes. He denies alcohol, tobacco, or recreational drug use. - Related Data Allergies Allergy/AdvReac Type Severity Reaction Status Date / Time hayfever Allergy Itching Uncoded 11/15/20 14:15 Home Meds: Home Meds Lutein/Minerals/Vit A,C & E [Ocuvite] 1 tab PO DAILY 01/27/17 [History] guaiFENesin [Robitussin] 100 mg PO Q6H PRN #1 bottle 01/29/17 [Rx] Losartan [Cozaar] 50 mg PO DAILY 11/15/20 [History] Metoprolol Succinate 25 mg PO DAILY 11/15/20 [History] Past Medical History HEENT History: Reports: Otitis Media Cardiovascular History: Reports: Hypertension Respiratory History: Reports: Bronchitis, Recurrent, Pneumonia, Recurrent, Other (See Below) Other Respiratory History: hayfever Gastrointestinal History: Reports: GERD, Helicobacter Pylori Other Gastrointestinal History: inguinal hernia on right side Genitourinary History: Reports: Other (See Below) Other Genitourinary History: Surgery for prostate surgery in 2008 Musculoskeletal History: Reports: Other (See Below) Other Musculoskeletal History: right shoulder Neurological History: Reports: None Psychiatric History: Reports: None Endocrine/Metabolic History: Reports: None Hematologic History: Reports: None Immunologic History: Reports: None Oncologic (Cancer) History: Reports: Prostate Other Oncologic History: 7 to 8 years ago Dermatologic History: Reports: None - Infectious Disease History Infectious Disease History: Reports: C-Difficile, Helicobacter Pylori, Hepatitis B, Measles, Mumps - Past Surgical History HEENT Surgical History: Reports: Polypectomy Respiratory Surgical History: Reports: None GI Surgical History: Reports: Hernia, Inguinal Male Surgical History: Reports: Prostatectomy Musculoskeletal Surgical History: Reports: None Social & Family History - Family History Family Medical History: No Pertinent Family History - Tobacco Use Tobacco Use Status *Q: Never Tobacco User Second Hand Smoke Exposure: No - Caffeine Use Caffeine Use: Reports: Coffee - Recreational Drug Use Recreational Drug Use: No ED ROS GENERAL - Review of Systems Review Of Systems: Comprehensive ROS is negative, except as noted in HPI. ED EXAM, DIZZINESS - Physical Exam Exam: See Below Exam Limited By: No Limitations General Appearance: Alert, No Apparent Distress, Other (Active emesis on arri angelica) Eye Exam: Bilateral Eye: EOMI, Normal Inspection, PERRL (3mm), Other (No nystagmus) Nystagmus: No: worsens with head to L, worsens with head to R, reproducible, reversible, constant, short duration Ears: TM Fluid (To left TM). No: TM Bulging, TM Erythema, TM Perforation Nose: Normal Inspection, Normal Mucosa, No Blood Throat/Mouth: Normal Inspection, Normal Oropharynx, Normal Voice, No Airway Compromise Head Exam: Atraumatic, Normocephalic Vertigo: No: worsens with head to L, worsens with head to R, reproducible, reversible, constant, short duration Neck: Normal Inspection, Supple, Non-Tender, Full Range of Motion. No: Lymphadenopathy (L), Lymphadenopathy (R) Respiratory/Chest: No Respiratory Distress, Lungs Clear, Normal Breath Sounds, No Accessory Muscle Use, Chest Non-Tender. No: Crackles, Rales, Rhonchi, Wheezing Cardiovascular: Normal Peripheral Pulses, Regular Rate, Rhythm, No Edema, No Gallop, No JVD, No Murmur, No Rub GI/Abdominal: Normal Bowel Sounds, Soft, Non-Tender, No Distention, No Abnormal Bruit, No Mass, Pelvis Stable (Male) Exam: Deferred Rectal (Males) Exam: Deferred Neurological: Alert, Normal Mood/Affect, Normal Dorsiflexion, CN II-XII Intact, Normal Plantar Flexion, Normal Gait, Normal Reflexes, No Motor/Sensory Deficits, Oriented x 3 Back Exam: Normal Inspection, Full Range of Motion Extremities: Normal Inspection, Normal Range of Motion, Non-Tender, No Pedal Edema, Normal Capillary Refill Psychiatric: Normal Affect, Normal Mood Skin Exam: Warm, Dry, Intact, Normal Color, No Rash. No: Cyanosis, Diaphoretic, Jaundice, Mottled, Pallor #1 Interpretation EKG Date: 11/15/20 Time: 14:18 Rhythm: Other (Sinus bradycardia) Rate (Beats/Min): 48 [place]: Normal P-Wave: Present QRS: Normal ST-T: Normal QT: Normal TN/PQ Interval: 0.17 Comparison: NA - No Prior EKG EKG Interpretation Comments: Sinus bradycardia; Q-wave III and aVF Course - Vital Signs Last Recorded V/S: Last Vital Signs Temp 95.9 F L 11/15/20 14:10 Pulse 67 11/15/20 14:10 Resp 20 11/15/20 14:10 BP 155/107 H 11/15/20 14:10 Pulse Ox 96 11/15/20 14:10 - Orders/Labs/Meds Labs: Laboratory Tests 11/15/20 11/15/20 11/15/20 Range/Units 14:29 14:48 14:48 WBC 6.7 (5.0-10.0) 10^3/uL RBC 5.30 (4.6-6.2) 10^6/uL Hgb 15.3 D (14.0-18.0) g/dL Hct 44.9 (40.0-54.0) % MCV 84.7 (80-100) fL MCH 28.9 (27.0-34.0) pg MCHC 34.1 (33.0-35.0) g/dL Plt Count 230 (150-450) 10^3/uL Neut % (Auto) 77.5 H (42.2-75.2) % Lymph % (Auto) 16.0 L (20.5-50.1) % Mitchell % (Auto) 4.3 (2-8) % Eos % (Auto) 1.6 (1.0-3.0) % Baso % (Auto) 0.6 (0.0-1.0) % Sodium 144 (136-145) mmol/L Potassium 3.8 (3.5-5.1) mmol/L Chloride 105 (98-107) mmol/L Carbon Dioxide 28 (21-32) mmol/L Anion Gap 14.8 H (7-13) mEq/L BUN 16 (7-18) mg/dL Creatinine 1.11 (0.70-1.30) mg/dL Est Cr Clr Drug Dosing 55.88 mL/min Estimated GFR (MDRD) > 60 BUN/Creatinine Ratio 14.4 (No establ ref range) Glucose 119 H (70-99) mg/dL POC Glucose 117 H (70-99) mg/dL Lactic Acid (0.4-2.0) mmol/L Calcium 8.6 (8.5-10.1) mg/dL Magnesium 2.2 (1.8-2.4) mg/dL Total Bilirubin 0.5 (0.2-1.0) mg/dL AST 19 (15-37) U/L ALT 24 (16-63) U/L Alkaline Phosphatase 56 (46-116) U/L Troponin I High Sens 4 (<=76) pg/mL C-Reactive Protein 0.6 (0.0-0.9) mg/dL Total Protein 7.4 (6.4-8.2) g/dL Albumin 3.9 (3.4-5.0) g/dL Globulin 3.5 Albumin/Globulin Ratio 1.1 Amylase (25-115) U/L Lipase (73-393) U/L Urine Color (YELLOW) Urine Appearance (CLEAR) Urine pH (5.0-9.0) Ur Specific [place] (1.005-1.030) Urine Protein (NEGATIVE) Urine Glucose (UA) (NEGATIVE) Urine Ketones (NEGATIVE) Urine Occult Blood (NEGATIVE) Urine Nitrite (NEGATIVE) Urine Bilirubin (NEGATIVE) Urine Urobilinogen (0.2-1.0) mg/dL Ur Leukocyte Esterase (NEGATIVE) Urine Opiates Screen (NEGATIVE) Ur Oxycodone Screen (NEGATIVE) Urine Methadone Screen (NEGATIVE) Ur Barbiturates Screen (NEGATIVE) U Tricyclic Antidepress (NEGATIVE) Ur Phencyclidine Scrn (NEGATIVE) Ur Amphetamine Screen (NEGATIVE) U Methamphetamines Scrn (NEGATIVE) Urine MDMA Screen (NEGATIVE) U Benzodiazepines Scrn (NEGATIVE) Urine Cocaine Screen (NEGATIVE) U Marijuana (THC) Screen (NEGATIVE) Ethyl Alcohol < 3 (0) mg/dL 11/15/20 11/15/20 11/15/20 Range/Units 14:48 14:48 16:00 WBC (5.0-10.0) 10^3/uL RBC (4.6-6.2) 10^6/uL Hgb (14.0-18.0) g/dL Hct (40.0-54.0) % MCV (80-100) fL MCH (27.0-34.0) pg MCHC (33.0-35.0) g/dL Plt Count (150-450) 10^3/uL Neut % (Auto) (42.2-75.2) % Lymph % (Auto) (20.5-50.1) % Mitchell % (Auto) (2-8) % Eos % (Auto) (1.0-3.0) % Baso % (Auto) (0.0-1.0) % Sodium (136-145) mmol/L Potassium (3.5-5.1) mmol/L Chloride (98-107) mmol/L Carbon Dioxide (21-32) mmol/L Anion Gap (7-13) mEq/L BUN (7-18) mg/dL Creatinine (0.70-1.30) mg/dL Est Cr Clr Drug Dosing mL/min Estimated GFR (MDRD) BUN/Creatinine Ratio (No establ ref range) Glucose (70-99) mg/dL POC Glucose (70-99) mg/dL Lactic Acid 1.8 (0.4-2.0) mmol/L Calcium (8.5-10.1) mg/dL Magnesium (1.8-2.4) mg/dL Total Bilirubin (0.2-1.0) mg/dL AST (15-37) U/L ALT (16-63) U/L Alkaline Phosphatase (46-116) U/L Troponin I High Sens (<=76) pg/mL C-Reactive Protein (0.0-0.9) mg/dL Total Protein (6.4-8.2) g/dL Albumin (3.4-5.0) g/dL Globulin Albumin/Globulin Ratio Amylase 49 (25-115) U/L Lipase 82 (73-393) U/L Urine Color Yellow (YELLOW) Urine Appearance Clear (CLEAR) Urine pH 7.0 (5.0-9.0) Ur Specific [place] 1.025 (1.005-1.030) Urine Protein Negative (NEGATIVE) Urine Glucose (UA) Negative (NEGATIVE) Urine Ketones 15 H (NEGATIVE) Urine Occult Blood Negative (NEGATIVE) Urine Nitrite Negative (NEGATIVE) Urine Bilirubin Negative (NEGATIVE) Urine Urobilinogen 0.2 (0.2-1.0) mg/dL Ur Leukocyte Esterase Negative (NEGATIVE) Urine Opiates Screen (NEGATIVE) Ur Oxycodone Screen (NEGATIVE) Urine Methadone Screen (NEGATIVE) Ur Barbiturates Screen (NEGATIVE) U Tricyclic Antidepress (NEGATIVE) Ur Phencyclidine Scrn (NEGATIVE) Ur Amphetamine Screen (NEGATIVE) U Methamphetamines Scrn (NEGATIVE) Urine MDMA Screen (NEGATIVE) U Benzodiazepines Scrn (NEGATIVE) Urine Cocaine Screen (NEGATIVE) U Marijuana (THC) Screen (NEGATIVE) Ethyl Alcohol (0) mg/dL 11/15/20 Range/Units 16:00 WBC (5.0-10.0) 10^3/uL RBC (4.6-6.2) 10^6/uL Hgb (14.0-18.0) g/dL Hct (40.0-54.0) % MCV (80-100) fL MCH (27.0-34.0) pg MCHC (33.0-35.0) g/dL Plt Count (150-450) 10^3/uL Neut % (Auto) (42.2-75.2) % Lymph % (Auto) (20.5-50.1) % Mitchell % (Auto) (2-8) % Eos % (Auto) (1.0-3.0) % Baso % (Auto) (0.0-1.0) % Sodium (136-145) mmol/L Potassium (3.5-5.1) mmol/L Chloride (98-107) mmol/L Carbon Dioxide (21-32) mmol/L Anion Gap (7-13) mEq/L BUN (7-18) mg/dL Creatinine (0.70-1.30) mg/dL Est Cr Clr Drug Dosing mL/min Estimated GFR (MDRD) BUN/Creatinine Ratio (No establ ref range) Glucose (70-99) mg/dL POC Glucose (70-99) mg/dL Lactic Acid (0.4-2.0) mmol/L Calcium (8.5-10.1) mg/dL Magnesium (1.8-2.4) mg/dL Total Bilirubin (0.2-1.0) mg/dL AST (15-37) U/L ALT (16-63) U/L Alkaline Phosphatase (46-116) U/L Troponin I High Sens (<=76) pg/mL C-Reactive Protein (0.0-0.9) mg/dL Total Protein (6.4-8.2) g/dL Albumin (3.4-5.0) g/dL Globulin Albumin/Globulin Ratio Amylase (25-115) U/L Lipase (73-393) U/L Urine Color (YELLOW) Urine Appearance (CLEAR) Urine pH (5.0-9.0) Ur Specific [place] (1.005-1.030) Urine Protein (NEGATIVE) Urine Glucose (UA) (NEGATIVE) Urine Ketones (NEGATIVE) Urine Occult Blood (NEGATIVE) Urine Nitrite (NEGATIVE) Urine Bilirubin (NEGATIVE) Urine Urobilinogen (0.2-1.0) mg/dL Ur Leukocyte Esterase (NEGATIVE) Urine Opiates Screen Negative (NEGATIVE) Ur Oxycodone Screen Negative (NEGATIVE) Urine Methadone Screen Negative (NEGATIVE) Ur Barbiturates Screen Negative (NEGATIVE) U Tricyclic Antidepress Negative (NEGATIVE) Ur Phencyclidine Scrn Negative (NEGATIVE) Ur Amphetamine Screen Negative (NEGATIVE) U Methamphetamines Scrn Negative (NEGATIVE) Urine MDMA Screen Negative (NEGATIVE) U Benzodiazepines Scrn Negative (NEGATIVE) Urine Cocaine Screen Negative (NEGATIVE) U Marijuana (THC) Screen Negative (NEGATIVE) Ethyl Alcohol (0) mg/dL Meds: Medications Discontinued Medications Generic Name Dose Route Start Last Admin Trade Name Freq PRN Reason Stop Dose Admin Amoxicillin/Clavulanate Potassium 1 tab 11/15/20 18:45 11/15/20 18:59 Amoxicillin/Clavulanate K 875-125 Mg Tab PO 11/15/20 18:46 1 tab ONETIME ONE Administration Amoxicillin/Clavulanate Potassium Confirm 11/15/20 18:52 Amoxicillin/Clavulanate K 875-125 Mg Tab Administered 11/15/20 18:53 Dose 4 tab .ROUTE .STK-MED ONE Meclizine HCl 25 mg 11/15/20 17:18 11/15/20 17:25 Meclizine 12.5 Mg Tab PO 11/15/20 17:19 25 mg ONETIME ONE Administration Meclizine HCl Confirm 11/15/20 18:52 Meclizine 12.5 Mg Tab Administered 11/15/20 18:53 Dose 25 mg .ROUTE .STK-MED ONE Meclizine HCl Confirm 11/15/20 18:55 Meclizine 12.5 Mg Tab Administered 11/15/20 18:56 Dose 37.5 mg .ROUTE .STK-MED ONE Ondansetron HCl 4 mg 11/15/20 14:01 11/15/20 14:05 Ondansetron 4 Mg/2 Ml Sdv IVPUSH 11/15/20 14:02 4 mg ONETIME ONE Administration - Radiology Interpretation Free Text/Narrative:: [facility] Final Radiology Report Call: [phone] assistance Online chat: [email or web address] Points Name: SABRINA BALDWIN Age: 70Years M Date: 11/15/2020 SSN: -- : [id number] Study: CT HEAD WO CONT Requesting Physician: Syl Headley Images: 148 Addl Studies: Provided Clinical History: New vertigo Contrast: Without Contrast Medium: Contrast Amount: Contrast Method: Page 1 of 2 PROCEDURE INFORMATION: Exam: CT Head Without Contrast Exam date and time: 11/15/2020 5:52 PM Age: 70 years old Clinical indication: Dizziness; Additional info: New vertigo TECHNIQUE: Imaging protocol: Computed tomography of the head without contrast. Radiation optimization: All CT scans at this facility use at least one of these dose optimization techniques: automated exposure control; mA and/or kV adjustment per patient size (includes targeted exams where dose is matched to clinical indication); or iterative reconstruction. COMPARISON: No relevant prior studies available. FINDINGS: Brain: Normal. No hemorrhage. Unremarkable white matter. No mass effect. Cerebral ventricles: No ventriculomegaly. Paranasal sinuses: Chronic sinusitis involving the bilateral ethmoid, sphenoid and maxillary sinuses. Mastoid air cells: Visualized mastoid air cells are well aerated. Bones/joints: Unremarkable. No acute fracture. Soft tissues: Unremarkable. IMPRESSION: Chronic sinusitis involving the bilateral ethmoid, sphenoid and maxillary sinuses. normal brain Thank you for allowing us to participate in the care of your patient. Dictated and Authenticated by: Cordell Lucio MD ANDERSON SABRINA | Final Radiology Report CONFIDENTIALITY STATEMENT This report is intended only for use by the referring physician, and only in accordance with law. If you received this in error, call [phone]. Page 2 of 2 11/15/2020 6:26 PM Central Time ([place] & [place]) - Re-Assessments/Exams Free Text/Narrative Re-Assessment/Exam: 11/15/20 Findings of examination and lab work reviewed with patient and . Patient experienced similar episode while sitting at the side of the ER cot. Will obtain Head CT. Patient verbalized improvement in dizziness with Meclizine. Findings of imaging reviewed with patient and . Will treat sinusitis with Augmentin and acute dizziness with Meclizine. Discussed use of OTC Flonase for eustachian tube dysfunction. Red flag signs and symptoms which would warrant reevaluation discussed. Patient and verbalized understanding and agreement with the plan of care. Departure - Departure Time of Disposition: 18:38 Disposition: Home, Self-Care 01 Condition: Good Clinical Impression: Dizziness, Chronic maxillary sinusitis, Chronic ethmoidal sinusitis, Chronic sphenoidal sinusitis Eustachian tube dysfunction Qualifiers: Laterality: left Qualified Code(s): H69.82 - Other specified disorders of Eustachian tube, left ear - Discharge Information *PRESCRIPTION DRUG MONITORING PROGRAM REVIEWED*: Not Applicable *COPY OF PRESCRIPTION DRUG MONITORING REPORT IN PATIENT MARSHA: Not Applicable Instructions: Sinusitis, Adult, [id number], Dizziness Forms: ED Department Discharge Additional Instructions: Rx: Augmentin Rx: Meclizine 1.) Take all of your antibiotic until gone. 2.) You may take Flonase to help drain sinuses. 3.) You may take the Meclizine as dizziness persists. 4.) Follow up with your primary care provider, or return to the emergency department, with symptoms that do not improve or worsen. 5.) Follow up with primary care provider, regardless of symptoms, early next week. Sepsis Event Note (ED) - Evaluation Sepsis Screening Result: No Definite Risk"
--- NOTE | 2020-11-15 18:26 | CT ---
PROCEDURE INFORMATION: Exam: CT Head Without Contrast Exam date and time: 11/15/2020 5:52 PM Age: 70 years old Clinical indication: Dizziness; Additional info: New vertigo TECHNIQUE: Imaging protocol: Computed tomography of the head without contrast. Radiation optimization: All CT scans at this facility use at least one of these dose optimization techniques: automated exposure control; mA and/or kV adjustment per patient size (includes targeted exams where dose is matched to clinical indication); or iterative reconstruction. COMPARISON: No relevant prior studies available. FINDINGS: Brain: Normal. No hemorrhage. Unremarkable white matter. No mass effect. Cerebral ventricles: No ventriculomegaly. Paranasal sinuses: Chronic sinusitis involving the bilateral ethmoid, sphenoid and maxillary sinuses. Mastoid air cells: Visualized mastoid air cells are well aerated. Bones/joints: Unremarkable. No acute fracture. Soft tissues: Unremarkable. IMPRESSION: Chronic sinusitis involving the bilateral ethmoid, sphenoid and maxillary sinuses. normal brain
[2020-11-15] MEDS ORDERED: Meclizine 12.5 MG Tab ONE ×2 (18:52→18:55)
[2020-11-15] MEDS ORDERED: Amoxicillin/Clavulanate K 875-125 MG Tab ONE (18:52)
== END 2020-11-15 19:11 | disposition home or self-care (01) ==
LOC: DL.ED 13:53
DX: R42 Dizziness and giddiness (principal); J32.0 Chronic maxillary sinusitis; J32.2 Chronic ethmoidal sinusitis; J32.3 Chronic sphenoidal sinusitis; H69.82 Other specified disorders of Eustachian tube, left ear; I10 Essential (primary) hypertension; Z91.09 Other allergy status, other than to drugs and biological substances; Z79.899 Other long term (current) drug therapy
CPT/HCPCS: 36415; 70450; 80053; 80305-QW; 80307; 81003; 82150; 82947; 83605; 83690; 83735; 84484; 85025; 86140; 93005; 96374; 99283; 99284-25; A9270-GY; J2405